=== PATIENT | male | born 1945 | race Caucasian/White ===

== ENCOUNTER 2018-09-07 17:51 | Observation (INO) ==
[2018-09-07] MEDS ORDERED: Famotidine 20 MG/2 ML VIAL IVP ONE (18:22)
[2018-09-07] MEDS ORDERED: 0.9 % Sodium Chloride 1,000 ML IVC ONE (18:22)
--- NOTE | 2018-09-07 18:34 | Emergency Department Note ---
Addendum entered and electronically signed by Ketan Chavez 09/07/18 22:24: Spoke with Dr. Bowens admitting hospitalist. Agree to admit for new ST segment changes. Original Note: Disposition Clinical Impression: Allergic reaction Disposition: Admitted As Inpatient Condition: Good Time of Disposition: 20:49 General Adult HPI - General Stated complaint: nausea, vomiting Time Seen by Provider: 09/07/18 17:53 Source: EMS Limitations: no limitations Nursing Notes Reviewed: Yes Vital Signs Reviewed: Yes - History of Present Illness HPI Narrative: Patient is a 73-year-old male past medical history of CAD who presents to the ED with nausea, vomiting, and diarrhea. Today the patient was at work hemoglobin the bathroom stated he has a "large bowel movement ". When he was heading back to his desk he suddenly felt an urge for diarrhea was unable to make it back to the bathroom had diarrhea he attempted to lay down in the bathroom to sleep because he felt very tired. EMS was called when they arrived he patient also vomited twice. The patient states he actually feels better after he vomited does not say he feels nauseous or feels like vomiting currently. Patient is shaking and feels "chills". Patient had shrimp for lunch and developed the symptoms 3-4 hours later. Pain Scale: 4 - Related Data Home Medications Medication Instructions Recorded Confirmed Aspirin [Lo-Dose Aspirin EC] 81 mg PO DAILY 06/28/18 06/28/18 Clopidogrel [Plavix] 75 mg PO DAILY 06/28/18 06/28/18 Metoprolol [Lopressor] 25 mg PO BID 06/28/18 06/28/18 Nitroglycerin [Nitrostat] 0.4 mg SL PRN PRN 06/28/18 06/28/18 Sennosides/Docusate Sodium 1 each PO BID 06/28/18 06/28/18 [Docusate Sodium-Senna Tablet] Allergies Allergy/AdvReac Type Severity Reaction Status Date / Time No Known Allergies Allergy Verified 05/22/15 13:12 Constitutional: Reports: fever, chills, weakness Cardiovascular: Denies: chest pain, palpitations Respiratory: Denies: cough, dyspnea, wheezes Gastrointestinal: Denies: abdominal pain, nausea Past Medical History - Past Medical History Medical history: Reports: coronary artery disease, hyperlipidemia, hypertension, myocardial infarction, RA, other - Social History Smoking Status: Former smoker Smokeless Tobacco Status: No Alcohol use: Reports: rarely Drug use: Reports: none Physical Exam Patient is lying down in bed shaking. Patient had vomitus over his shirt and his parents were soiled. - General Limitations: no limitations General appearance: alert - Head Head exam: atraumatic, normocephalic - Chest Chest inspection: Present: normal inspection, symmetric chest wall rise. Absent: tenderness - Respiratory Respiratory exam: Present: normal lung sounds bilaterally, wheezes (Patient had mild diffuse wheezes). Absent: respiratory distress - Cardiovascular Cardiovascular exam: Present: regular rate, normal rhythm, normal heart sounds, +S1, +S2. Absent: rubs, gallop, +S3, +S4 - Abdominal Exam Abdominal exam: Present: soft, Non-Tender, normal bowel sounds. Absent: distention, guarding, rebound, rigidity - Skin Skin exam: Present: rash (Patient had a generalized blanching urticarial rash) Course Vital Signs Temperature 98 F 09/07/18 17:57 Pulse Rate 89 09/07/18 17:57 Respiratory Rate 16 09/07/18 17:57 Blood Pressure 119/100 09/07/18 17:57 O2 Sat by Pulse Oximetry 97 09/07/18 17:57 Temperature 98 F 09/07/18 17:57 Pulse Rate 89 09/07/18 17:57 Respiratory Rate 16 09/07/18 17:57 Blood Pressure 119/100 09/07/18 17:57 O2 Sat by Pulse Oximetry 97 09/07/18 17:57 Oxygen Delivery Oxygen Delivery Room Air Medical Decision Making - [facility] Narrative Medical decision making narrative: Patient here for nausea vomiting. CBC was ordered patient was shaking and generalized urticarial rash. Placed on Pepcid and Benadryl. Patient does have EKG changes inferior lateral T-wave inversion which was not present on the previous EKGs patient to be admitted for cardiac workup. hospitalist paged Patient is stop shaking his sleeping and feeling better.
--- NOTE | 2018-09-07 18:50 | Emergency Department Note ---
Disposition Clinical Impression: Allergic reaction Disposition: Admitted As Inpatient Condition: Good Forms: ED Satisfaction Letter General Adult HPI - General Chief complaint: ED Nausea/Vomiting/Diarrhea Stated complaint: N/V/D Time Seen by Provider: 09/07/18 17:53 Source: EMS Limitations: no limitations - History of Present Illness Pain Scale: 4 - Related Data Home Medications Medication Instructions Recorded Confirmed Aspirin [Lo-Dose Aspirin EC] 81 mg PO DAILY 06/28/18 06/28/18 Clopidogrel [Plavix] 75 mg PO DAILY 06/28/18 06/28/18 Metoprolol [Lopressor] 25 mg PO BID 06/28/18 06/28/18 Nitroglycerin [Nitrostat] 0.4 mg SL PRN PRN 06/28/18 06/28/18 Sennosides/Docusate Sodium 1 each PO BID 06/28/18 06/28/18 [Docusate Sodium-Senna Tablet] Allergies Allergy/AdvReac Type Severity Reaction Status Date / Time No Known Allergies Allergy Verified 05/22/15 13:12 Constitutional: Reports: fever, chills, weakness Cardiovascular: Denies: chest pain, palpitations Respiratory: Denies: cough, dyspnea, wheezes Gastrointestinal: Denies: abdominal pain, nausea Past Medical History - Past Medical History Medical history: Reports: coronary artery disease, hyperlipidemia, hypertension, myocardial infarction, RA, other - Social History Smoking Status: Former smoker Smokeless Tobacco Status: No Alcohol use: Reports: rarely Drug use: Reports: none Physical Exam - General Limitations: no limitations General appearance: alert Course Vital Signs Temperature 98 F 09/07/18 17:57 Pulse Rate 89 09/07/18 17:57 Respiratory Rate 16 09/07/18 17:57 Blood Pressure 119/100 09/07/18 17:57 O2 Sat by Pulse Oximetry 97 09/07/18 17:57 Temperature 98 F 09/07/18 17:57 Pulse Rate 78 09/07/18 20:07 Respiratory Rate 14 09/07/18 20:07 Blood Pressure 125/66 09/07/18 20:07 O2 Sat by Pulse Oximetry 97 09/07/18 17:57 Oxygen Delivery Oxygen Delivery Room Air Medical Decision Making - Lab Data Result diagrams: 09/07/18 19:29 09/07/18 21:07 Lab Results 09/07/18 09/07/18 09/07/18 Range/Units 19:29 19:29 19:29 WBC 15.2 H (4.3-11.1) K/mcL RBC 4.66 (4.19-5.50) M/mcL Hgb 15.3 (12.9-16.9) g/dL Hct 45.2 (37.5-50.1) % MCV 97.0 (83.0-100.0) fL MCH 32.8 (28.0-33.3) pg MCHC 33.8 (31.6-35.5) g/dL RDW 12.4 (11.5-14.5) % Plt Count 270 (140-400) K/mcL MPV 10.3 (9.4-12.4) fL Sodium (136-145) mEq/L Potassium (3.5-5.1) mEq/L Chloride (98-107) mEq/L Carbon Dioxide (23-29) mEq/L BUN (8-23) mg/dL Creatinine (0.70-1.30) mg/dL Est GFR ( Amer) (> 60) Est GFR (Non-Af Amer) (> 60) BUN/Creatinine Ratio (6-26) Glucose (70-105) mg/dL Calculated Osmolality (280-300) Calcium (8.6-10.3) mg/dL Total Bilirubin (0.3-1.0) mg/dL Direct Bilirubin (0.0-0.2) mg/dL Indirect Bilirubin (0.0-1.2) mg/dL AST (13-39) Units/L ALT (7-52) Units/L Alkaline Phosphatase (34-104) Units/L Troponin I < 0.03 (< 0.04) ng/mL Serum Total Protein (6.4-8.9) g/dL Albumin (3.5-5.7) g/dL Globulin (2.4-3.5) g/dL Albumin/Globulin Ratio (1.1-2.2) Specimen Rejected Hemolyzed 09/07/18 Range/Units 21:07 WBC (4.3-11.1) K/mcL RBC (4.19-5.50) M/mcL Hgb (12.9-16.9) g/dL Hct (37.5-50.1) % MCV (83.0-100.0) fL MCH (28.0-33.3) pg MCHC (31.6-35.5) g/dL RDW (11.5-14.5) % Plt Count (140-400) K/mcL MPV (9.4-12.4) fL Sodium 141 (136-145) mEq/L Potassium 4.6 (3.5-5.1) mEq/L Chloride 111 H (98-107) mEq/L Carbon Dioxide 23 (23-29) mEq/L BUN 24 H (8-23) mg/dL Creatinine 0.86 (0.70-1.30) mg/dL Est GFR ( Amer) > 60 (> 60) Est GFR (Non-Af Amer) > 60 (> 60) BUN/Creatinine Ratio 28 H (6-26) Glucose 130 H (70-105) mg/dL Calculated Osmolality 298 (280-300) Calcium 9.4 (8.6-10.3) mg/dL Total Bilirubin 0.4 (0.3-1.0) mg/dL Direct Bilirubin 0.1 (0.0-0.2) mg/dL Indirect Bilirubin 0.3 (0.0-1.2) mg/dL AST 24 (13-39) Units/L ALT 19 (7-52) Units/L Alkaline Phosphatase 60 (34-104) Units/L Troponin I (< 0.04) ng/mL Serum Total Protein 7.1 (6.4-8.9) g/dL Albumin 3.7 (3.5-5.7) g/dL Globulin 3.4 (2.4-3.5) g/dL Albumin/Globulin Ratio 1.1 (1.1-2.2) Specimen Rejected Attestation Statement - Attestation Attestation: I examined this patient and my medical decision-making was reviewed with the LINEN CHECKER/PA/Advanced Practice Nurse/Resident Physician. I agree with the documented findings, disposition and treatment plan as described except to the extent set forth below. I did see the patient is spoke with them examine home and he began to have nausea vomiting and diarrhea about 3 hours after eating shrimp for lunch. The symptoms began about 4:00. He denies any pain in the head, neck, chest, abdomen or back but of note he does have a EKG showing inferior lateral T-wave inversion which was not present on the previous EKGs to the patient will be admitted and further worked up for cardiac etiology of his symptoms. He does have a generalized urticarial blanching rash and did receive 40 mg Pepcid IV and Benadryl 25 mg IV. Otherwise breathing comfortably. He is not hypotensive. Results of blood testing pending. 1849
[2018-09-07 19:44] LABS: Hematocrit 45.2 % (37.5-50.1); Hemoglobin 15.3 g/dL (12.9-16.9); Mean Corpuscular HGB Conc 33.8 g/dL (31.6-35.5); Mean Corpuscular Hemoglobin 32.8 pg (28.0-33.3); Mean Platelet Volume 10.3 fL (9.4-12.4); Platelet Count 270 K/mcL (140-400); Red Blood Count 4.66 M/mcL (4.19-5.50); Red Cell Distribution Width 12.4 % (11.5-14.5)
[2018-09-07 21:42] LABS: Alanine Aminotransferase 19 Units/L (7-52); Albumin 3.7 g/dL (3.5-5.7); Albumin/Globulin Ratio 1.1 (1.1-2.2); Alkaline Phosphatase 60 Units/L (34-104); Aspartate Amino Transferase 24 Units/L (13-39); BUN/Creatinine Ratio 28 (6-26); Bilirubin,Direct 0.1 mg/dL (0.0-0.2); Bilirubin,Indirect 0.3 mg/dL (0.0-1.2); Bilirubin,Total 0.4 mg/dL (0.3-1.0); Blood Urea Nitrogen 24 mg/dL (8-23); Calcium 9.4 mg/dL (8.6-10.3); Carbon Dioxide 23 mEq/L (23-29); Chloride 111 mEq/L (98-107); Globulin 3.4 g/dL (2.4-3.5); Glucose 130 mg/dL (70-105); Osmolality,Calculated 298 (280-300); Potassium 4.6 mEq/L (3.5-5.1); Sodium 141 mEq/L (136-145); Total Protein 7.1 g/dL (6.4-8.9); eGFR For Non-African Americans > 60 (> 60)
[2018-09-08] MEDS ORDERED: Naloxone 0.4 MG/ML INJ IVP PRN (00:23)
[2018-09-08] MEDS ORDERED: Nitroglycerin 0.4 MG TAB.SUBL SL PRN (00:30)
[2018-09-08] MEDS ORDERED: 0.9 % Sodium Chloride 1,000 ML IVC SCH (00:30)
[2018-09-08] MEDS ORDERED: Ondansetron 4 MG/2 ML VIAL IVP PRN (00:30)
--- NOTE | 2018-09-08 01:22 | Internal Med History&Physical ---
<Earl Ji Macho - Last Filed: 09/08/18 02:19> Date of Encounter: 09/08/18 Time of Encounter: 11:50 Internal Medicine - H&P: HPI Chief complaint: N/V, diarrhea Admitted From: Home Plans for Post Hospital Care: Home History of present illness: Mr. Hoyt is a 73 year old male with omh significant for CAD s/p PCI 06/09, HTN, and HLD who ate shrimp he purchased 2 weeks ago and ~2 hours later started having oral numbness, generalized pruritus, diaphoresis, and flushed feeling of face. This was followed ~1 hour later with multiple episodes of diarrhea and then emesis enroute to ED. Within the ED he was noted to have urticarial type rash and additional diarrhea. He was given benadryl and pepcid and his symptoms resolved completely. He denied headache, diplopia, blurry vision, dizziness/lightheadedness, chest pain, palpitations, dyspnea, continued abdominal pain, numbness/paresthesia, muscle weakness worse from baseline. EKG done within the ED showed new st changes when compared to last available EKG f 2009 and being admitted for cardiac workup. He has not had any anginal symptoms since having PCI and completing cardiac rehab. Past Med Surg Social Fam HX - Past Medical History Medical history: coronary artery disease, hyperlipidemia, hypertension, myocardial infarction, RA, other - Social History Smoking Status: Former smoker Smokeless Tobacco Status: No Alcohol use: rarely Drug use: none - Family History Mother Living Status: Age at : 81 Father Living Status: Age at : 66 Hx Family Cardiac Disorders: Yes Internal Medicine - H&P: Meds Aspirin [Lo-Dose Aspirin EC] 81 mg PO DAILY 06/28/18 [History] Clopidogrel [Plavix] 75 mg PO DAILY 06/28/18 [History] Nitroglycerin [Nitrostat] 0.4 mg SL PRN PRN 06/28/18 [History] Acetaminophen [Tylenol] 500 mg PO BID 09/07/18 [History] Allergy/AdvReac Type Severity Reaction Status Date / Time No Known Allergies Allergy Verified 05/22/15 13:12 All Systems PM: A 10-system review of systems was performed and is negative for pertinent findings except as documented above in the HPI. - Constitutional Vitals: Temp Pulse Resp BP Pulse Ox 98 F 79 16 115/70 97 09/07/18 17:57 09/07/18 22:00 09/08/18 00:17 09/08/18 00:17 09/07/18 17:57 General appearance: Present: cooperative, A&O X 3, pleasant, no acute distress, obese Exam: - - Head Head exam: Present: atraumatic, normal inspection, normocephalic - Eye Eye exam: Present: normal appearance - ENT ENT exam: Present: mucous membranes dry - Neck Neck exam general surgery: Present: normal inspection, supple, trachea midline. Absent: lymphadenopathy, tenderness - Respiratory Respiratory exam: Present: accessory muscle use, CTAB. Absent: chest wall tenderness, decreased breath sounds, prolonged expiratory phase, rales, respiratory distress, rhonchi, stridor, wheezes, tachypnea - Cardiovascular Cardiovascular exam: Present: RRR, +S1, +S2. Absent: bradycardia, clicks, diastolic murmur, distant heart sounds, gallop, irregular rhythm, JVD, rubs, +S3, +S4, systolic murmur, tachycardia - GI/Abdominal GI/Abdominal exam: Present: soft. Absent: distended, firm, guarding, hepatomegaly, rebound, rigid, splenomegaly, tenderness, no peritoneal signs - Extremities Exam Extremities exam: Present: normal capillary refill, normal inspection, pedal edema (trace), warm, radial pulses palpable and symmetrical. Absent: calf tenderness, cyanotic, tenderness - Neurological Exam Neurological exam: Present: alert, CN II-XII intact, oriented X3. Absent: no f ocal deficits, facial droop, speech deficit - Psychiatric Psychiatric exam: Present: normal affect, normal mood - Skin Skin exam: Present: dry, intact, normal color, warm. Absent: abrasion, cyanosis, diaphoretic, erythema, excoriation, mottled, pallor, petechiae, rash, urticaria, vesicles Internal Med - H&P Results - Labs CBC & Chem 7: 09/08/18 01:11 09/08/18 01:11 Labs: Short CBC 09/07/18 Range/Units 19:29 WBC 15.2 H (4.3-11.1) K/mcL Hgb 15.3 (12.9-16.9) g/dL Hct 45.2 (37.5-50.1) % Plt Count 270 (140-400) K/mcL BMP 09/07/18 21:07 Sodium 141 Potassium 4.6 Chloride 111 H Carbon Dioxide 23 BUN 24 H Creatinine 0.86 Glucose 130 H Calcium 9.4 Cardiac Enzymes 09/07/18 Range/Units 19:29 Troponin I < 0.03 (< 0.04) ng/mL Liver Function 09/07/18 Range/Units 21:07 Total Bilirubin 0.4 (0.3-1.0) mg/dL Direct Bilirubin 0.1 (0.0-0.2) mg/dL AST 24 (13-39) Units/L ALT 19 (7-52) Units/L Alkaline Phosphatase 60 (34-104) Units/L Albumin 3.7 (3.5-5.7) g/dL - Assessment and plan (1) CAD (coronary artery disease) Current Visit: Yes Status: Chronic Assessment and plan: -Known hx of CAD s/p PCI 06/09 at [facility] -Completing cardiac rehab and no anginal symptoms reported since PCI -Stress test 07/[address] changes at baseline, non specific for ischemia, rare pvc's -Reported only taking asa and clopidogrel at home cause was told to stop bb and statin at PCI time -New st changes anterolaterally on EKG within ED when compared to last available in ED from 2009 -EKG done at cardiology clinic 06/09 post GA/PCI consistent with current EKG abnormalities -Initial troponin neg -Will restart BB and statin now -Will get additional troponin now and if neg will not have further cardiac workup given no anginal symptoms recently Qualifiers: Coronary Disease-Associated Artery/Lesion type: [place] artery [place] vs. transplanted heart: [place] heart Associated angina: without angina Qualified Code(s): I25.10 - Atherosclerotic heart disease of [place] coronary artery without angina pectoris (2) Scombroid fish poisoning Current Visit: Yes Status: Suspected Assessment and plan: -Oral numbness, pruritus, diaphoresis, flushing, N/V, diarrhea, and urticarial rash ~2 hours after eating shellfish purchased 2 weeks ago -All symptoms resolved with benadryl and famotidine in ED -Most likely 2/2 to old shellfish he ate today -No further symptoms -Getting IV hydration now Qualifiers: Encounter type: initial encounter Injury intent: accidental or unintentional Qualified Code(s): T61.11XA - Scombroid fish poisoning, a ccidental (unintentional), initial encounter (3) DVT prophylaxis Current Visit: Yes Status: Acute Assessment and plan: -Subq heparin - Time Spent With Patient Total time spent is greater than 50% in coordination of care (as documented) at patient's floor/unit and/or counseling patient: <Violeta Mcintosh - Last Filed: 09/08/18 07:03> Date of Encounter: 09/08/18 Internal Medicine - H&P: HPI History of present illness: Mr. Hoyt is a 73 year old male All Systems PM: A 10-system review of systems was performed and is negative for pertinent findings except as documented above in the HPI. - Constitutional Vitals: Temp Pulse Resp BP Pulse Ox 98.1 F 70 16 119/69 96 09/08/18 04:27 09/08/18 04:27 09/08/18 04:27 09/08/18 04:27 09/08/18 04:27 Internal Med - H&P Results - Labs CBC & Chem 7: 09/08/18 01:11 09/08/18 01:11 Labs: Short CBC 09/07/18 09/08/18 Range/Units 19:29 01:11 WBC 15.2 H 12.1 H (4.3-11.1) K/mcL Hgb 15.3 13.6 D (12.9-16.9) g/dL Hct 45.2 40.7 (37.5-50.1) % Plt Count 270 256 (140-400) K/mcL Neutrophils # 9.6 H (1.6-8.9) K/mcL BMP 09/07/18 09/08/18 21:07 01:11 Sodium 141 139 Potassium 4.6 4.4 Chloride 111 H 107 Carbon Dioxide 23 26 BUN 24 H 24 H Creatinine 0.86 0.90 Glucose 130 H 126 H Calcium 9.4 9.2 Cardiac Enzymes 09/07/18 09/08/18 Range/Units 19:29 01:11 Troponin I < 0.03 < 0.03 (< 0.04) ng/mL Liver Function 09/07/18 Range/Units 21:07 Total Bilirubin 0.4 (0.3-1.0) mg/dL Direct Bilirubin 0.1 (0.0-0.2) mg/dL AST 24 (13-39) Units/L ALT 19 (7-52) Units/L Alkaline Phosphatase 60 (34-104) Units/L Albumin 3.7 (3.5-5.7) g/dL - Assessment and plan (1) Scombroid fish poisoning Current Visit: Yes Status: Suspected Qualifiers: Encounter type: initial encounter Injury intent: accidental or unintentional Qualified Code(s): T61.11XA - Scombroid fish poisoning, accidental (unintentional), initial encounter (2) CAD (coronary artery disease) Current Visit: Yes Status: Chronic Qualifiers: Coronary Disease-Associated Artery/Lesion type: [place] artery [place] vs. transplanted heart: [place] heart Associated angina: without angina Qualified Code(s): I25.10 - Atherosclerotic heart disease of [place] coronary artery wit hout angina pectoris (3) DVT prophylaxis Current Visit: Yes Status: Acute - Time Spent With Patient Total time spent is greater than 50% in coordination of care (as documented) at patient's floor/unit and/or counseling patient: - Attending Attestation I performed a history and physical examination of the patient and discussed his assessment with the resident. I reviewed the resident's note and agree with the plan of care. Short patient is a 73-year-old male with a significant past medical history of coronary artery disease status post PCI currently undergoing cardiac rehabilitation. Patient presented after several episodes of nausea, vomiting and diarrhea shortly after consuming shrimp. Patient denied any episodes of chest pain during these episodes. EKG obtained in the ED showed significant changes from an old EKG concerning for ischemia. Initial troponin was negative. However, after reviewing outpatient cardiology workup with more recently reported EKG findings, EKG changes noted here appear to be patient's new established baseline. Nevertheless, we will continue to trend troponin and observe overnight.
[2018-09-08 01:32] LABS: Basophils % 0.2 %; Eosinophils % 0.2 %; Hematocrit 40.7 % (37.5-50.1); Immature Granulocytes % 0.3 % (0-4); Lymphocytes # 1.7 K/mcL (0.6-4.6); Mean Corpuscular HGB Conc 33.4 g/dL (31.6-35.5); Mean Corpuscular Hemoglobin 32.7 pg (28.0-33.3); Mean Corpuscular Volume 97.8 fL (83.0-100.0); Monocytes # 0.7 K/mcL (0.0-1.3); Monocytes % 5.9 %; Neutrophils # 9.6 K/mcL (1.6-8.9); Platelet Count 256 K/mcL (140-400); Red Blood Count 4.16 M/mcL (4.19-5.50); Red Cell Distribution Width 12.5 % (11.5-14.5); Segmented Neutrophils % 79.4 %
[2018-09-08 01:34] LABS: Hemoglobin 13.6 g/dL (12.9-16.9)
[2018-09-08 01:45] LABS: BUN/Creatinine Ratio 27 (6-26); Blood Urea Nitrogen 24 mg/dL (8-23); Calcium 9.2 mg/dL (8.6-10.3); Carbon Dioxide 26 mEq/L (23-29); Chloride 107 mEq/L (98-107); Chol/HDL Ratio 3.8 (0-4.9); Cholesterol 113 mg/dL (< 200); Glucose 126 mg/dL (70-105); HDL Cholesterol 30 mg/dL (40-59); LDL Cholesterol,Calculated 68 mg/dL (0-99); Magnesium 1.9 mg/dL (1.6-2.6); Osmolality,Calculated 294 (280-300); Phosphorous 3.3 mg/dL (2.7-4.5); Potassium 4.4 mEq/L (3.5-5.1); Sodium 139 mEq/L (136-145); Triglycerides 75 mg/dL (< 150); eGFR For Non-African Americans > 60 (> 60)
[2018-09-08 01:51] LABS: INR 1.2
[2018-09-08 01:53] LABS: Activated Partial Thrombo Time 31.5 Seconds (26.0-36.0)
[2018-09-08] MEDS: *HR* Heparin 5,000 UNIT/ML VIAL SQ SCH ×2 (01:56→06:04)
[2018-09-08 07:44] VITALS: BP 107/58
[2018-09-08] MEDS ORDERED: Aspirin Enteric Coated 81 MG Tablet PO SCH (09:00)
--- NOTE | 2018-09-08 10:00 | Discharge Summary ---
Addendum entered and electronically signed by Mark Onofre DO 09/08/18 10:51: Patient is not to be on metoprolol for right now per recommendation from previous business continuity strategy director according to patient. I will leave this decision up to his business continuity strategy director to see if he wants to put him back on metoprolol or not. Original Note: <Mark Onofre - Last Filed: 09/08/18 09:57> Orders not resulted at time of discharge: Pending orders 09/07/18 18:23 ECG 12 lead ECG [ECG] Stat Date of Encounter: 09/08/18 Time of Encounter: 09:00 - Discharge Diagnosis (1) CAD (coronary artery disease) Priority: Primary Status: Chronic Qualifiers: Coronary Disease-Associated Artery/Lesion type: [place] artery [place] vs. transplanted heart: [place] heart Associated angina: without angina Qualified Code(s): I25.10 - Atherosclerotic heart disease of [place] coronary artery without angina pectoris (2) Scombroid fish poisoning Priority: Primary Status: Suspected Qualifiers: Encounter type: initial encounter Injury intent: accidental or unintentional Qualified Code(s): T61.11XA - Scombroid fish poisoning, accidental (unintentional), initial encounter Hospital course: Mr. Hoyt is a 73 year old male with a past medical history of CAD s/p PCI 06/09, HTN, and HLD that presented on 09/08/17 for nausea, vomiting, and diarrhea secondary to fish food poisoning. He developed oral numbness, general pruritus, diaphoresis, and flushing of face followed by episodes of diarrhea and emesis. He also developed an urticarial type rash. He was given Benadryl and Pepcid to resolve his symptoms. Denied any chest pain symptoms. EKG done in the ED showed new ST changes when compared to last EKG from 2009, however we were able to recover an EKG done at cardiology clinic on 06/09 post PR/PCI which was consistent with current EKG abnormalities. Patient was restarted on beta blockers and statins for his coronary artery disease. We continued his aspirin and clopidogrel. His troponins were trended type negative 2. When seen today patient denied any chest pain, shortness of breath, throat swelling, numbness and tingling of the mouth, nausea, vomiting, or abdominal pain. His rash on his extremities has appeared to resolve. Patient says that overall he feels very well. We will send the patient home on metoprolol and statins. He is to continue taking his aspirin and clopidogrel. Warned patient that if he develops any chest pain, shortness of breath, nausea, vomiting, lightheadedness, rashes, or throat swelling to report immediately to the ER. Patient is to follow-up with PCP in one week. - Time Spent with Patient Total time spent providing and/or coordinating discharge services: Less than 30 minutes - Discharge Medications Prescriptions: RX: Atorvastatin [Lipitor] 80 mg PO HS 30 Days #30 tablet Home Medications: RX: Aspirin [Lo-Dose Aspirin EC] 81 mg PO DAILY 06/28/18 [History] RX: Clopidogrel [Plavix] 75 mg PO DAILY 06/28/18 [History] RX: Nitroglycerin [Nitrostat] 0.4 mg SL PRN PRN 06/28/18 [History] RX: Acetaminophen [Tylenol] 500 mg PO BID 09/07/18 [History] RX: Atorvastatin [Lipitor] 80 mg PO HS 30 Days #30 tablet 09/08/18 [Rx] RX: Desoximetasone 1 appl TP 3XW PRN 09/08/18 [History] Allergies/Adverse Reactions: Allergy/AdvReac Type Severity Reaction Status Date / Time No Known Allergies Allergy Verified 05/22/15 13:12 Date of admission: 09/08/18 00:06 Primary care physician: Hamilton Dominguez DO Discharging clinician: Mark Onofre Anticipated date of discharge: 09/08/18 - Constitutional Vitals: Temp Pulse Resp BP Pulse Ox 97.7 F 60 18 107/58 95 09/08/18 07:41 09/08/18 07:41 09/08/18 07:41 09/08/18 07:41 09/08/18 07:41 General appearance: Present: cooperative, A&O X 3, pleasant, no acute distress, obese - Neck Neck exam general surgery: Present: supple, trachea midline. Absent: lymphadenopathy - Respiratory Respiratory exam: Present: CTAB. Absent: accessory muscle use, rales, rhonchi, wheezes - Cardiovascular Cardiovascular exam: Present: RRR, +S1, +S2. Absent: diastolic murmur, gallop, rubs, systolic murmur - GI/Abdominal GI/Abdominal exam: Present: normal bowel sounds, soft, no peritoneal signs. Absent: distended, tenderness - Extremities Exam Extremities exam: Present: warm, radial pulses palpable and symmetrical. Absent: calf tenderness, cyanotic, pedal edema - Skin Skin exam: Present: normal color. Absent: erythema, rash, urticaria - Patient Status Disposition: Home, Self-Care Condition: Good Overall status at discharge: patient is back to baseline - Discharge Instructions Instructions: Atorvastatin (By mouth), General Allergic Reaction, [employer] Salesperson (GEN) Follow Up With: Hamilton Dominguez DO [Primary Care Provider] - 09/13/18 4:45 pm () Octavio Ferreira DO [Partnered Physician] - 10/12/18 9:30 am - Diet and Activity Activity: resume usual activities as tolerated Diet: low fat, low cholesterol, low salt diet <Rakan Moreno - Last Filed: 09/08/18 14:02> Date of Encounter: 09/08/18 Hospital course: Mr. Hoyt is a 73 year old male - Time Spent with Patient Total time spent providing and/or coordinating discharge services: Date of admission: 09/08/18 00:06 Primary care physician: Hamilton Dominguez DO - Constitutional Vitals: Temp Pulse Resp BP Pulse Ox 97.7 F 60 18 107/58 95 09/08/18 07:41 09/08/18 07:41 09/08/18 07:41 09/08/18 07:41 09/08/18 07:41 - Attending Attestation I examined this patient and my medical decision-making was reviewed with the Resident Physician Dr. Onofre. I agree with the documented findings, disposition and treatment plan as described except to the extent set forth below. Mr. Hoyt is a 73 year old male with omh significant for CAD s/p PCI 06/09, HTN, and HLD who ate shrimp he purchased 2 weeks ago and ~2 hours later started having oral numbness, generalized pruritus, diaphoresis, and flushed feeling of face. This was followed ~1 hour later with multiple episodes of diarrhea and then emesis enroute to ED. 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 With IV hydration, symptomatic and supportive care his diarrhea resolved. He denied any CP. His serial troponin were negative. His current EKG showed some non specific ST changed which were same compared to his recent EKG from 06/09 after recent CAD. He does not need any further work regarding this. I asked the pt to start taking Metoprolol at low dose, however pt stated his Electronic Maintenance Supervisor from [place] and Dr. Ferreira from [place] stated he does not need to be on Metoprolol. So I requested the pt to talk to his Card again and see if they can put him back on BB ( Metoprolol if his HR allows ). Gen: Alert, awake, Oriented to time,place and person Chest: Diminished breath sounds B/L, No wheezing, No crackles, No rales Heart: S1S2+ RRR No murmurs Abd: Soft, NT, BS +, No organomegaly Ext: No edema, pulses are palpable, No calf tenderness
--- NOTE | 2018-09-08 15:32 | Electrocardiograph Report ---
[place] [id number] Test Date: 2018-09-07 Pat Name: Loyd Hoyt Department: [id number] Room: 3B35 Gender: M [place] [employer] Supervisor: : [id number] Requested By: Loyd Sánchez Order Number: [id number] Reading MD: Antonella Perez Measurements Intervals [place] Rate: 81 P: 36 NC: 174 QRS: -16 QRSD: 102 T: -49 QT: 440 QTc: 511 Interpretive Statements Sinus rhythm Left ventricular hypertrophy Inferior infarct, age indeterminate Lateral leads are also involved Prolonged QT interval Electronically Signed On 09-08-2018 15:30:56 EST by Antonella Perez
== END 2018-09-08 12:02 | disposition home or self-care (01) ==
LOC: 3BNU 17:51 → EMEROOARM 17:51 → 3BNU 09-08 00:23
PROVIDERS: ADMIT Internal Medicine; ATTEND Internal Medicine

== ENCOUNTER 2021-08-15 12:17 | Inpatient (IN) ==
[2021-08-15 13:42] LABS: Basophils % 0.1 %; Eosinophils # 0.1 K/mcL (0.0-0.6); Eosinophils % 0.7 %; Hematocrit 35.2 % (37.5-50.1); Hemoglobin 10.9 g/dL (12.9-16.9); Immature Granulocytes % 0.3 % (0-4); Lymphocytes # 1.9 K/mcL (0.6-4.6); Lymphocytes % 25.4 %; Mean Corpuscular Hemoglobin 31.8 pg (28.0-33.3); Mean Corpuscular Volume 102.6 fL (83.0-100.0); Mean Platelet Volume 9.6 fL (9.4-12.4); Monocytes # 0.7 K/mcL (0.0-1.3); Monocytes % 9.7 %; Neutrophils # 4.9 K/mcL (1.6-8.9); Platelet Count 417 K/mcL (140-400); Red Blood Count 3.43 M/mcL (4.19-5.50); Red Cell Distribution Width 13.4 % (11.5-14.5); Segmented Neutrophils % 63.8 %; White Blood Count 7.7 K/mcL (4.3-11.1)
[2021-08-15 13:49] LABS: INR 1.3; Prothrombin Time 14.1 Seconds (9.4-12.1)
[2021-08-15 14:04] LABS: BUN/Creatinine Ratio 29 (6-26); Blood Urea Nitrogen 24 mg/dL (8-23); Calcium 8.6 mg/dL (8.6-10.3); Carbon Dioxide 26 mEq/L (23-29); Chloride 104 mEq/L (98-107); Glucose 97 mg/dL (70-105); Osmolality,Calculated 286 (280-300); Potassium 4.1 mEq/L (3.5-5.1); Sodium 136 mEq/L (136-145); Troponin I < 0.03 ng/mL (< 0.04); eGFR For African Americans > 60 (> 60); eGFR For Non-African Americans > 60 (> 60)
[2021-08-15] MEDS ORDERED: Naloxone 0.4 MG/ML INJ IVP PRN (15:03)
[2021-08-15] MEDS ORDERED: Ondansetron 4 MG/2 ML VIAL IVP PRN (15:03)
[2021-08-15] MEDS ORDERED: Furosemide 40 MG/4 ML VIAL IVP ONE (15:10)
[2021-08-15] MEDS ORDERED: Perflutren Lipid Microsphere 1.3 ML in 0.9 % Sodium Chloride 8.7 ML IVP PRN (15:26)
[2021-08-15 15:28] LABS: Influenza A PCR Negative (Negative); Influenza B PCR Negative (Negative); Resp. Syncytial Virus PCR Negative (Negative)
[2021-08-15 15:31] LABS: SARS-CoV-2 by PCR (In House) Negative (Negative)
[2021-08-15] MEDS: *HR* Heparin 5,000 UNIT/ML VIAL SQ SCH (18:42)
[2021-08-15] MEDS ORDERED: GuaiFENesin Liq 200 MG/10 ML UDC PO ONE (23:44)
[2021-08-15] MEDS: Acetaminophen 325 MG TABLET PO PRN (23:50)
[2021-08-16 03:07] LABS: Basophils % 0.2 %; Eosinophils # 0.1 K/mcL (0.0-0.6); Hematocrit 33.6 % (37.5-50.1); Hemoglobin 10.2 g/dL (12.9-16.9); Immature Granulocytes % 0.5 % (0-4); Immature Reticulocyte % 29.9 % (11.0-38.0); Lymphocytes # 2.3 K/mcL (0.6-4.6); Mean Corpuscular HGB Conc 30.4 g/dL (31.6-35.5); Mean Corpuscular Volume 105.3 fL (83.0-100.0); Mean Platelet Volume 9.8 fL (9.4-12.4); Monocytes # 0.9 K/mcL (0.0-1.3); Monocytes % 10.2 %; Neutrophils # 5.2 K/mcL (1.6-8.9); Platelet Count 400 K/mcL (140-400); Red Blood Count 3.19 M/mcL (4.19-5.50); Red Cell Distribution Width 13.2 % (11.5-14.5); Retculocyte # 0.16 M/mcL (0.05-0.10); Reticulocyte % 5.1 % (1.6-2.8); Segmented Neutrophils % 61.1 %; White Blood Count 8.6 K/mcL (4.3-11.1)
[2021-08-16 03:19] LABS: Albumin/Globulin Ratio 0.9 (1.1-2.2); Bilirubin,Direct 0.4 mg/dL (0.0-0.2); Bilirubin,Indirect 0.7 mg/dL (0.0-1.0); Bilirubin,Total 1.1 mg/dL (0.3-1.0); Globulin 3.3 g/dL (2.4-3.5); Total Protein 6.3 g/dL (6.4-8.9)
[2021-08-16 03:31] LABS: BUN/Creatinine Ratio 28 (6-26); Blood Urea Nitrogen 22 mg/dL (8-23); C-Reactive Protein 19 mg/L (Less than 10); Calcium 8.3 mg/dL (8.6-10.3); Carbon Dioxide 25 mEq/L (23-29); Chloride 104 mEq/L (98-107); Chol/HDL Ratio 2.1 (0-4.9); Cholesterol 59 mg/dL (< 200); Glucose 105 mg/dL (70-105); HDL Cholesterol 28 mg/dL (40-59); Iron 68 mcg/dL (65-175); LDL Cholesterol,Calculated 18 mg/dL (< 100); Lactate Dehydrogenase 160 Units/L (140-271); Osmolality,Calculated 288 (280-300); Phosphorous 4.7 mg/dL (2.7-4.5); Potassium 3.9 mEq/L (3.5-5.1); Sodium 137 mEq/L (136-145); Triglycerides 65 mg/dL (< 150); eGFR For African Americans > 60 (> 60); eGFR For Non-African Americans > 60 (> 60)
[2021-08-16 03:46] LABS: Folate 11.1 ng/mL (3.0-16.0)
[2021-08-16] MEDS: *HR* Heparin 5,000 UNIT/ML VIAL SQ SCH ×2 (05:14→16:57)
[2021-08-16 05:46] LABS: Ferritin < 8 ng/mL (20-250)
[2021-08-16] MEDS ORDERED: Furosemide 40 MG/4 ML VIAL IVP ONE (18:25)
[2021-08-16] MEDS: traZODone 50 MG TABLET PO PRN (20:15)
[2021-08-17] MEDS: *HR* Heparin 5,000 UNIT/ML VIAL SQ SCH ×2 (05:17→16:42)
[2021-08-17] MEDS: Furosemide 40 MG/4 ML VIAL IVP SCH ×2 (08:29→20:32)
[2021-08-17 08:36] LABS: Hemoglobin 11.7 g/dL (12.9-16.9); Mean Corpuscular HGB Conc 30.8 g/dL (31.6-35.5); Mean Corpuscular Hemoglobin 32.1 pg (28.0-33.3); Mean Corpuscular Volume 104.4 fL (83.0-100.0); Mean Platelet Volume 9.4 fL (9.4-12.4); Platelet Count 466 K/mcL (140-400); Red Blood Count 3.64 M/mcL (4.19-5.50); Red Cell Distribution Width 13.4 % (11.5-14.5); White Blood Count 8.3 K/mcL (4.3-11.1)
[2021-08-17 09:01] LABS: BUN/Creatinine Ratio 27 (6-26); Blood Urea Nitrogen 21 mg/dL (8-23); Calcium 8.8 mg/dL (8.6-10.3); Carbon Dioxide 28 mEq/L (23-29); Chloride 103 mEq/L (98-107); Glucose 120 mg/dL (70-105); Osmolality,Calculated 290 (280-300); Potassium 3.3 mEq/L (3.5-5.1); Sodium 138 mEq/L (136-145); Uric Acid 5.9 mg/dL (2.3-7.6); eGFR For African Americans > 60 (> 60); eGFR For Non-African Americans > 60 (> 60)
[2021-08-17] MEDS ORDERED: Famotidine 20 MG/2 ML VIAL IVP ONE (09:23)
[2021-08-17] MEDS ORDERED: Metoclopramide 10 MG/2 ML VIAL IVP ONE (09:23)
[2021-08-17] MEDS ORDERED: Potassium Chloride Elixir 20 MEQ/15 ML UDC PO ONE ×2 (09:30→11:06)
[2021-08-17 09:36] LABS: Adenovirus Not Detected (Not Detect); Bordetella Pertussis Not Detected (Not Detect); Chlamydophila pneumoniae Not Detected (Not Detect); Coronavirus 229E Not Detected (Not Detect); Coronavirus HKU1 Not Detected (Not Detect); Coronavirus NL63 Not Detected (Not Detect); Coronavirus OC43 Not Detected (Not Detect); Human Metapneumovirus Not Detected (Not Detect); Human Rhinovirus/Enterovirus DETECTED (Not Detect); Influenza A Subtype 2009 H1 Not Detected (Not Detect); Influenza B Not Detected (Not Detect); Mycoplasma pneumoniae Not Detected (Not Detect); Parainfluenza Virus 1 Not Detected (Not Detect); Parainfluenza Virus 2 Not Detected (Not Detect); Parainfluenza Virus 3 Not Detected (Not Detect); Parainfluenza Virus 4 Not Detected (Not Detect); Respiratory Syncytial Virus Not Detected (Not Detect); SARS-CoV-2 Not Detected (Not Detect)
[2021-08-17] MEDS ORDERED: *HR* FentaNYL (PF) 100 MCG/2 ML VIAL IVP ONE (11:05)
[2021-08-17] MEDS: Acetaminophen 325 MG TABLET PO PRN (13:46)
[2021-08-17 14:56] LABS: Lactate Dehydrogenase 151 Units/L (140-271)
[2021-08-17 17:34] LABS: RBC,Pleural Fluid < 2000 RBC/mcL
[2021-08-17 17:46] LABS: Total Protein,Pleural Fluid 4.5 g/dL
[2021-08-17 17:55] LABS: Appearance of Pleural Fl Hazy (Clear)
[2021-08-17 18:34] LABS: Basophils,Pleural Fluid 0 %; Eosinophils,Pleural Fluid 0 %
[2021-08-17] MEDS: traZODone 50 MG TABLET PO PRN (20:32)
[2021-08-17] MEDS ORDERED: *HR* HYDROcodone/Acet 10/325 mg TABLET PO ONE (20:42)
[2021-08-18 02:00] LABS: Basophils % 0.1 %; Eosinophils # 0.1 K/mcL (0.0-0.6); Eosinophils % 0.9 %; Hematocrit 36.6 % (37.5-50.1); Hemoglobin 11.1 g/dL (12.9-16.9); Immature Granulocytes % 0.7 % (0-4); Lymphocytes # 2.4 K/mcL (0.6-4.6); Lymphocytes % 28.1 %; Mean Corpuscular HGB Conc 30.3 g/dL (31.6-35.5); Mean Corpuscular Hemoglobin 31.4 pg (28.0-33.3); Mean Corpuscular Volume 103.7 fL (83.0-100.0); Mean Platelet Volume 9.4 fL (9.4-12.4); Monocytes # 0.8 K/mcL (0.0-1.3); Monocytes % 9.8 %; Neutrophils # 5.1 K/mcL (1.6-8.9); Platelet Count 421 K/mcL (140-400); Red Blood Count 3.53 M/mcL (4.19-5.50); Red Cell Distribution Width 13.5 % (11.5-14.5); Segmented Neutrophils % 60.4 %; White Blood Count 8.5 K/mcL (4.3-11.1)
[2021-08-18 02:30] LABS: BUN/Creatinine Ratio 24 (6-26); Blood Urea Nitrogen 21 mg/dL (8-23); Calcium 8.8 mg/dL (8.6-10.3); Carbon Dioxide 32 mEq/L (23-29); Chloride 102 mEq/L (98-107); Glucose 116 mg/dL (70-105); Osmolality,Calculated 290 (280-300); Sodium 138 mEq/L (136-145); eGFR For African Americans > 60 (> 60); eGFR For Non-African Americans > 60 (> 60)
[2021-08-18] MEDS: *HR* Heparin 5,000 UNIT/ML VIAL SQ SCH ×2 (05:28→17:34)
[2021-08-18] MEDS: Furosemide 40 MG/4 ML VIAL IVP SCH ×2 (08:40→22:09)
[2021-08-18 10:31] LABS: % Iron Saturation 31 % (20-55); Transferrin 157 mg/dL (203-362)
[2021-08-18 12:29] LABS: Hepatitis B Surface Antigen Nonreactive (Nonreactive)
[2021-08-18 12:58] LABS: Hepatitis B Core IgM Nonreactive (Nonreactive)
[2021-08-18 12:59] LABS: Hepatitis A Antibody IgM Nonreactive (Nonreactive); Hepatitis C Virus Antibody Nonreactive (Nonreactive)
[2021-08-18] MEDS: Acetaminophen 325 MG TABLET PO PRN (17:34)
[2021-08-19 02:44] LABS: Basophils % 0.2 %; Eosinophils # 0.1 K/mcL (0.0-0.6); Eosinophils % 0.7 %; Hematocrit 36.5 % (37.5-50.1); Hemoglobin 11.4 g/dL (12.9-16.9); Immature Granulocytes % 0.6 % (0-4); Lymphocytes # 2.2 K/mcL (0.6-4.6); Lymphocytes % 17.8 %; Mean Corpuscular HGB Conc 31.2 g/dL (31.6-35.5); Mean Corpuscular Hemoglobin 32.1 pg (28.0-33.3); Mean Corpuscular Volume 102.8 fL (83.0-100.0); Mean Platelet Volume 9.4 fL (9.4-12.4); Monocytes # 1.4 K/mcL (0.0-1.3); Monocytes % 11.2 %; Neutrophils # 8.5 K/mcL (1.6-8.9); Platelet Count 446 K/mcL (140-400); Red Blood Count 3.55 M/mcL (4.19-5.50); Red Cell Distribution Width 13.5 % (11.5-14.5); Segmented Neutrophils % 69.5 %; White Blood Count 12.2 K/mcL (4.3-11.1)
[2021-08-19 03:00] LABS: BUN/Creatinine Ratio 26 (6-26); Blood Urea Nitrogen 23 mg/dL (8-23); Calcium 9.1 mg/dL (8.6-10.3); Carbon Dioxide 32 mEq/L (23-29); Chloride 98 mEq/L (98-107); Glucose 114 mg/dL (70-105); Osmolality,Calculated 287 (280-300); Potassium 3.9 mEq/L (3.5-5.1); Sodium 136 mEq/L (136-145); eGFR For African Americans > 60 (> 60); eGFR For Non-African Americans > 60 (> 60)
[2021-08-19] MEDS: *HR* Heparin 5,000 UNIT/ML VIAL SQ SCH ×2 (05:22→18:03)
[2021-08-19] MEDS: Furosemide 40 MG/4 ML VIAL IVP SCH ×2 (08:29→22:38)
[2021-08-19] MEDS ORDERED: Lidocaine -MPF 2% 5 ML VIAL ONE (13:17)
[2021-08-19] MEDS ORDERED: *HR* Propofol 200 MG/20 ML VIAL IVP ONE (13:17)
[2021-08-19] MEDS ORDERED: Albuterol 2.5 MG/3 ML NEBULIZER IH ONE (13:47)
[2021-08-19 23:38] LABS: Fluid Source for Triglycerides PLEURAL FLUID
[2021-08-20] MEDS: *HR* Heparin 5,000 UNIT/ML VIAL SQ SCH ×2 (05:17→16:20)
[2021-08-20 05:49] LABS: Basophils % 0.2 %; Eosinophils % 0.1 %; Hematocrit 36.8 % (37.5-50.1); Hemoglobin 11.5 g/dL (12.9-16.9); Immature Granulocytes % 0.9 % (0-4); Lymphocytes # 1.9 K/mcL (0.6-4.6); Lymphocytes % 11.2 %; Mean Corpuscular HGB Conc 31.3 g/dL (31.6-35.5); Mean Corpuscular Hemoglobin 32.1 pg (28.0-33.3); Mean Corpuscular Volume 102.8 fL (83.0-100.0); Mean Platelet Volume 9.8 fL (9.4-12.4); Monocytes # 2.2 K/mcL (0.0-1.3); Monocytes % 12.8 %; Neutrophils # 12.8 K/mcL (1.6-8.9); Platelet Count 468 K/mcL (140-400); Red Blood Count 3.58 M/mcL (4.19-5.50); Red Cell Distribution Width 13.8 % (11.5-14.5); Segmented Neutrophils % 74.8 %; White Blood Count 17.1 K/mcL (4.3-11.1)
[2021-08-20 06:29] LABS: BUN/Creatinine Ratio 31 (6-26); Blood Urea Nitrogen 29 mg/dL (8-23); Calcium 9.4 mg/dL (8.6-10.3); Carbon Dioxide 32 mEq/L (23-29); Chloride 95 mEq/L (98-107); Glucose 127 mg/dL (70-105); Osmolality,Calculated 289 (280-300); Potassium 3.7 mEq/L (3.5-5.1); Sodium 136 mEq/L (136-145); eGFR For African Americans > 60 (> 60); eGFR For Non-African Americans > 60 (> 60)
[2021-08-20] MEDS: Furosemide 40 MG/4 ML VIAL IVP SCH ×2 (07:59→20:35)
[2021-08-20 09:45] LABS: Triglycerides,Body Fluid 10 mg/dL
[2021-08-20 13:38] LABS: Fluid Source for Cholesterol PLEURAL FLUID
[2021-08-20 15:02] LABS: Cholesterol,Body Fluid 43 mg/dL
[2021-08-20] MEDS: Sucralfate 1 GM TABLET PO SCH (20:34)
[2021-08-20] MEDS: traZODone 50 MG TABLET PO PRN (20:35)
[2021-08-21 02:17] LABS: Hemoglobin 11.7 g/dL (12.9-16.9); Mean Corpuscular HGB Conc 32.5 g/dL (31.6-35.5); Mean Corpuscular Hemoglobin 32.8 pg (28.0-33.3); Mean Corpuscular Volume 100.8 fL (83.0-100.0); Mean Platelet Volume 9.5 fL (9.4-12.4); Platelet Count 487 K/mcL (140-400); Red Blood Count 3.57 M/mcL (4.19-5.50); Red Cell Distribution Width 13.6 % (11.5-14.5); White Blood Count 16.3 K/mcL (4.3-11.1)
[2021-08-21 02:26] LABS: BUN/Creatinine Ratio 38 (6-26); Blood Urea Nitrogen 35 mg/dL (8-23); Calcium 9.2 mg/dL (8.6-10.3); Carbon Dioxide 33 mEq/L (23-29); Chloride 94 mEq/L (98-107); Glucose 121 mg/dL (70-105); Osmolality,Calculated 287 (280-300); Potassium 3.7 mEq/L (3.5-5.1); Sodium 134 mEq/L (136-145); eGFR For African Americans > 60 (> 60); eGFR For Non-African Americans > 60 (> 60)
[2021-08-21] MEDS: *HR* Heparin 5,000 UNIT/ML VIAL SQ SCH ×2 (05:43→16:26)
[2021-08-21] MEDS: Furosemide 40 MG/4 ML VIAL IVP SCH ×2 (07:37→21:12)
[2021-08-21] MEDS: Acetylcysteine 10% 2 ML INHSOL IH SCH ×3 (15:23→22:07)
[2021-08-21] MEDS: Ipratropium/Albuterol Neb 3 ML IH SCH ×3 (15:24→22:07)
[2021-08-21] MEDS: Sucralfate 1 GM TABLET PO SCH (21:12)
[2021-08-22] MEDS: Acetylcysteine 10% 2 ML INHSOL IH SCH ×4 (04:02→21:36)
[2021-08-22] MEDS: Ipratropium/Albuterol Neb 3 ML IH SCH ×4 (04:02→21:36)
[2021-08-22] MEDS: *HR* Heparin 5,000 UNIT/ML VIAL SQ SCH ×2 (06:05→16:55)
[2021-08-22] MEDS ORDERED: *HR* Propofol 200 MG/20 ML VIAL IVP ONE (06:56)
[2021-08-22] MEDS ORDERED: *HR* FentaNYL (PF) 100 MCG/2 ML VIAL ONE (06:56)
[2021-08-22] MEDS ORDERED: *HR* Succinylcholine 200 MG/10 ML VIAL IVP ONE (07:00)
[2021-08-22] MEDS ORDERED: Ondansetron 4 MG/2 ML VIAL ONE (07:00)
[2021-08-22] MEDS ORDERED: Lidocaine -MPF 2% 5 ML VIAL ONE (07:00)
[2021-08-22] MEDS ORDERED: Lidocaine 1% 20 ML MDV ONE (07:26)
[2021-08-22] MEDS ORDERED: *HR* Heparin 5,000 UNIT/ML VIAL ONE (07:26)
[2021-08-22] MEDS ORDERED: *HR* Rocuronium Bromide 50 MG/5 ML VIAL ONE (08:13)
[2021-08-22] MEDS ORDERED: Lidocaine HCL 4 ML Topical Solution (Laryng-O-Jet Kit Sterile Pak) TP ONE (08:13)
[2021-08-22] MEDS ORDERED: *HR* FentaNYL (PF) 100 MCG/2 ML VIAL IVP PRN ×2 (08:47→12:01)
[2021-08-22] MEDS ORDERED: Naloxone 0.4 MG/ML INJ IVP PRN ×3 (08:47→12:01)
[2021-08-22] MEDS ORDERED: Ipratropium Neb 0.5 MG NEBULIZER IH PRN ×2 (08:47→12:01)
[2021-08-22] MEDS ORDERED: Albuterol 2.5 MG/3 ML NEBULIZER IH PRN (08:47)
[2021-08-22] MEDS ORDERED: Nitroglycerin 0.4 MG TAB.SUBL SL PRN ×2 (08:47→12:01)
[2021-08-22] MEDS ORDERED: CeFAZolin Syr 2,000MG/20 ML 2,000 MG/20 ML SYRINGE IVPB ONE (09:00)
[2021-08-22] MEDS ORDERED: EPHEDrine 50 MG/ML VIAL ONE (09:16)
[2021-08-22] MEDS ORDERED: Sugammadex Sodium 200 MG/2 ML VIAL IV ONE (09:16)
[2021-08-22] MEDS ORDERED: *HR* HYDROMORPHONE 2 MG/ML VIAL ONE (09:54)
[2021-08-22] MEDS: Furosemide 40 MG/4 ML VIAL IVP SCH ×2 (11:29→20:35)
[2021-08-22] MEDS ORDERED: Perflutren Lipid Microsphere 1.3 ML in 0.9 % Sodium Chloride 8.7 ML IVP PRN (12:01)
[2021-08-22] MEDS ORDERED: traZODone 50 MG TABLET PO PRN (12:01)
[2021-08-22] MEDS ORDERED: Acetaminophen 325 MG TABLET PO PRN (12:01)
[2021-08-22] MEDS ORDERED: Ondansetron 4 MG/2 ML VIAL IVP PRN (12:01)
[2021-08-22 16:31] LABS: Hematocrit 33.5 % (37.5-50.1); Hemoglobin 10.7 g/dL (12.9-16.9); Mean Corpuscular HGB Conc 31.9 g/dL (31.6-35.5); Mean Corpuscular Hemoglobin 32.4 pg (28.0-33.3); Mean Corpuscular Volume 101.5 fL (83.0-100.0); Mean Platelet Volume 9.5 fL (9.4-12.4); Platelet Count 448 K/mcL (140-400); Red Cell Distribution Width 13.3 % (11.5-14.5); White Blood Count 11.1 K/mcL (4.3-11.1)
[2021-08-22 16:55] LABS: BUN/Creatinine Ratio 39 (6-26); Blood Urea Nitrogen 39 mg/dL (8-23); Calcium 8.8 mg/dL (8.6-10.3); Carbon Dioxide 31 mEq/L (23-29); Chloride 95 mEq/L (98-107); Glucose 158 mg/dL (70-105); Osmolality,Calculated 291 (280-300); Sodium 134 mEq/L (136-145); eGFR For African Americans > 60 (> 60); eGFR For Non-African Americans > 60 (> 60)
[2021-08-22] MEDS: Sucralfate 1 GM TABLET PO SCH (20:35)
[2021-08-23] MEDS: Ipratropium/Albuterol Neb 3 ML IH SCH ×4 (04:01→22:59)
[2021-08-23] MEDS: Acetylcysteine 10% 2 ML INHSOL IH SCH ×4 (04:01→22:59)
[2021-08-23] MEDS: *HR* Heparin 5,000 UNIT/ML VIAL SQ SCH ×2 (05:47→17:59)
[2021-08-23] MEDS: Furosemide 40 MG/4 ML VIAL IVP SCH ×2 (07:45→20:20)
[2021-08-23] MEDS: Sucralfate 1 GM TABLET PO SCH (20:19)
[2021-08-24] MEDS: Ipratropium/Albuterol Neb 3 ML IH SCH ×4 (04:15→23:41)
[2021-08-24] MEDS: Acetylcysteine 10% 2 ML INHSOL IH SCH ×4 (04:15→23:41)
[2021-08-24] MEDS: *HR* Heparin 5,000 UNIT/ML VIAL SQ SCH ×2 (05:38→17:04)
[2021-08-24] MEDS: Furosemide 40 MG/4 ML VIAL IVP SCH ×2 (07:41→22:30)
[2021-08-24] MEDS: Sucralfate 1 GM TABLET PO SCH (22:30)
[2021-08-25 01:39] LABS: Hematocrit 34.2 % (37.5-50.1); Hemoglobin 11.3 g/dL (12.9-16.9); Mean Corpuscular Hemoglobin 32.8 pg (28.0-33.3); Mean Corpuscular Volume 99.4 fL (83.0-100.0); Mean Platelet Volume 9.3 fL (9.4-12.4); Platelet Count 459 K/mcL (140-400); Red Blood Count 3.44 M/mcL (4.19-5.50); Red Cell Distribution Width 13.2 % (11.5-14.5); White Blood Count 14.5 K/mcL (4.3-11.1)
[2021-08-25 01:56] LABS: Alanine Aminotransferase 14 Units/L (7-52); Albumin 2.9 g/dL (3.5-5.7); Albumin/Globulin Ratio 0.8 (1.1-2.2); Alkaline Phosphatase 59 Units/L (34-104); Aspartate Amino Transferase 27 Units/L (13-39); BUN/Creatinine Ratio 42 (6-26); Blood Urea Nitrogen 31 mg/dL (8-23); Calcium 8.5 mg/dL (8.6-10.3); Carbon Dioxide 33 mEq/L (23-29); Chloride 95 mEq/L (98-107); Globulin 3.6 g/dL (2.4-3.5); Glucose 127 mg/dL (70-105); Magnesium 1.9 mg/dL (1.6-2.6); Osmolality,Calculated 290 (280-300); Potassium 3.2 mEq/L (3.5-5.1); Sodium 136 mEq/L (136-145); Total Protein 6.5 g/dL (6.4-8.9); eGFR For African Americans > 60 (> 60); eGFR For Non-African Americans > 60 (> 60)
[2021-08-25] MEDS: Acetylcysteine 10% 2 ML INHSOL IH SCH (04:04)
[2021-08-25] MEDS: Ipratropium/Albuterol Neb 3 ML IH SCH ×4 (04:04→21:42)
[2021-08-25] MEDS: *HR* Heparin 5,000 UNIT/ML VIAL SQ SCH ×2 (06:15→17:00)
[2021-08-25] MEDS: Furosemide 40 MG TABLET PO SCH (08:22)
[2021-08-25] MEDS: Sucralfate 1 GM TABLET PO SCH (20:23)
[2021-08-25] MEDS: *HR* HYDROcodone/Acet 5/325 mg TABLET PO PRN (20:26)
[2021-08-26] MEDS: Ipratropium/Albuterol Neb 3 ML IH SCH ×4 (03:49→20:12)
[2021-08-26] MEDS: *HR* Heparin 5,000 UNIT/ML VIAL SQ SCH ×2 (05:13→17:29)
[2021-08-26] MEDS: Furosemide 40 MG TABLET PO SCH (08:11)
[2021-08-26] MEDS: *HR* HYDROcodone/Acet 5/325 mg TABLET PO PRN (08:14)
[2021-08-26] MEDS: Sucralfate 1 GM TABLET PO SCH (20:06)
[2021-08-27] MEDS: Ipratropium/Albuterol Neb 3 ML IH SCH ×4 (03:29→19:41)
[2021-08-27] MEDS: *HR* Heparin 5,000 UNIT/ML VIAL SQ SCH ×2 (04:54→17:23)
[2021-08-27] MEDS: Furosemide 40 MG TABLET PO SCH (07:33)
[2021-08-27] MEDS: *HR* HYDROcodone/Acet 5/325 mg TABLET PO PRN (07:33)
[2021-08-27] MEDS: Sucralfate 1 GM TABLET PO SCH (20:47)
[2021-08-28 02:46] LABS: Hematocrit 34.4 % (37.5-50.1); Hemoglobin 10.7 g/dL (12.9-16.9); Mean Corpuscular HGB Conc 31.1 g/dL (31.6-35.5); Mean Corpuscular Hemoglobin 31.8 pg (28.0-33.3); Mean Corpuscular Volume 102.4 fL (83.0-100.0); Mean Platelet Volume 9.5 fL (9.4-12.4); Platelet Count 383 K/mcL (140-400); Red Blood Count 3.36 M/mcL (4.19-5.50); Red Cell Distribution Width 13.2 % (11.5-14.5); White Blood Count 11.8 K/mcL (4.3-11.1)
[2021-08-28 03:03] LABS: Blood Urea Nitrogen 30 mg/dL (8-23); Calcium 8.6 mg/dL (8.6-10.3); Carbon Dioxide 30 mEq/L (23-29); Chloride 97 mEq/L (98-107); Glucose 117 mg/dL (70-105); Osmolality,Calculated 287 (280-300); Sodium 135 mEq/L (136-145)
[2021-08-28] MEDS: Ipratropium/Albuterol Neb 3 ML IH SCH ×3 (04:00→15:50)
[2021-08-28 05:33] LABS: BUN/Creatinine Ratio 35 (6-26); eGFR For African Americans > 60 (> 60); eGFR For Non-African Americans > 60 (> 60)
[2021-08-28] MEDS: *HR* Heparin 5,000 UNIT/ML VIAL SQ SCH ×2 (06:02→16:51)
[2021-08-28] MEDS: Furosemide 40 MG TABLET PO SCH (08:23)
[2021-08-28] MEDS ORDERED: Isovue-370 500 ML BOTTLE IVP ONE (14:32)
[2021-08-28] MEDS: Sucralfate 1 GM TABLET PO SCH (20:08)
[2021-08-28] MEDS: *HR* HYDROcodone/Acet 5/325 mg TABLET PO PRN (20:08)
[2021-08-29] MEDS: Ipratropium/Albuterol Neb 3 ML IH SCH ×4 (00:04→16:26)
[2021-08-29] MEDS: *HR* Heparin 5,000 UNIT/ML VIAL SQ SCH (05:04)
[2021-08-29] MEDS: Furosemide 40 MG TABLET PO SCH (09:04)
[2021-08-29 10:16] LABS: Adenovirus Not Detected (Not Detect); Bordetella Pertussis Not Detected (Not Detect); Chlamydophila pneumoniae Not Detected (Not Detect); Coronavirus 229E Not Detected (Not Detect); Coronavirus HKU1 Not Detected (Not Detect); Coronavirus NL63 Not Detected (Not Detect); Coronavirus OC43 Not Detected (Not Detect); Human Metapneumovirus Not Detected (Not Detect); Human Rhinovirus/Enterovirus Not Detected (Not Detect); Influenza A Subtype 2009 H1 Not Detected (Not Detect); Influenza B Not Detected (Not Detect); Mycoplasma pneumoniae Not Detected (Not Detect); Parainfluenza Virus 1 Not Detected (Not Detect); Parainfluenza Virus 2 Not Detected (Not Detect); Parainfluenza Virus 3 Not Detected (Not Detect); Parainfluenza Virus 4 Not Detected (Not Detect); Respiratory Syncytial Virus Not Detected (Not Detect); SARS-CoV-2 Not Detected (Not Detect)
[2021-08-29 11:39] VITALS: BP 94/62; PULSE 72; TEMP 97.5; O2SAT 92
== END 2021-08-29 16:48 | disposition other institution (70) | DRG 166 ==
LOC: 2ANU 12:17 → EMEROOARM 12:17 → SUATTDRO 17:10 → 2ANU 18:16 → SUATTDRO 08-17 19:04
PROVIDERS: ADMIT Internal Medicine; ATTEND Registered Nurse